=== PATIENT | female | born 1935 | race Hispanic/Latino ===

== ENCOUNTER → 2020-02-05 | Day surgery (SDC) | payer MEDICARE, OTHER ==
--- NOTE | 2020-01-31 09:55 | Diagnostic Imaging Report ---
EXAMINATION: CHEST 2 VIEWS INDICATION: Pre-operative COMPARISON: None FINDINGS: LINES/TUBES:None LUNGS:The lungs are well-inflated. No focal consolidation or pulmonary edema. PLEURA:No pleural effusion or pneumothorax. MEDIASTINUM:The cardiomediastinal silhouette appears normal in size and shape. BONES/SOFT TISSUES:No acute osseous injury. ABDOMEN:No free air under the diaphragm. Status post cholecystectomy. IMPRESSION: No focal pneumonia or pulmonary edema. Signed by: Balbir Sabillon MD on 01/31/2020 9:51 AM
[2020-01-31 10:03] LABS: BASOPHILS # (AUTO) 0.1 (0.0-0.1); BASOPHILS % 0.7 % (0.0-1.0); EOSINOPHILS # (AUTO) 0.2 (0.0-0.4); EOSINOPHILS % 2.5 % (0.0-6.0); HEMATOCRIT 44.6 % (34.2-44.1); HEMOGLOBIN 15.2 g/dL (12.0-16.0); LYMPHOCYTES # (AUTO) 2.7 (1.0-3.2); LYMPHOCYTES % 29.8 % (18.0-39.1); MEAN CORPUSCULAR HEMOGLOBIN 29.7 pg (28-32); MEAN CORPUSCULAR HGB CONC 34.1 g/dL (31-35); MEAN CORPUSCULAR VOLUME 87.3 fL (81-99); MONOCYTES # (AUTO) 0.8 (0.2-0.8); MONOCYTES % 8.6 % (4.4-11.3); NEUTROPHILS # (AUTO) 5.2 (2.1-6.9); NEUTROPHILS % 58.1 % (38.7-80.0); PLATELET COUNT 164 x10e3/uL (140-360); RED BLOOD COUNT 5.11 x10e6/uL (3.6-5.1)
--- NOTE | 2020-01-31 10:17 | Diagnostic Imaging Report ---
Exam: KUB - 2 views Indication: Preoperative Comparison: None Findings: Left internal nephroureteral stent in place. No radiographically apparent urinary calculi. Nonobstructive bowel gas pattern. No free air. Status post cholecystectomy. Surgical clips project over the right lower quadrant. No acute osseous injury. Degenerative changes of the visualized spine and both hip joints. Impression: Left internal nephroureteral stent in place. No radiographically apparent urinary calculi. Signed by: Balbir Sabillon MD on 01/31/2020 10:13 AM
[2020-01-31 10:22] LABS: ALBUMIN 3.7 g/dL (3.5-5.0); ALBUMIN/GLOBULIN RATIO 0.9 (0.8-2.0); ANION GAP 17.7 mmol/L (8-16); CALCIUM 9.8 mg/dL (8.4-10.2); CREATININE, SERUM 1.26 mg/dL (0.57-1.11); POTASSIUM 4.7 mmol/L (3.5-5.1)
[~2020-02-05] MED LIST: B&O 60MG R/S 60 MG SUPP PR ONE; CLARITIN10 MG PO; CYMBALTA30 MG PO; FIBER PO; GENTAMICIN 80MG/NS 100 ML 200 ML IV ONE; GLIMEPIRIDE2 MG PO; INSULIN REGULAR, HUMAN 100 UNIT/1 ML 3ML VIAL ONE; IOPAMIDOL 300MG/ML 50ML INFUS..BTL IV ONE; LEVOFLOXACIN 500MG/D5W 100ML 100 ML IV ONE; LOSARTAN POTASS25 MG PO; PROPOFOL IV EMULSION 10 MG/ML 20 ML VIAL ONE; SEVOFLURANE INHAL SOLN 250 ML PEN BTL ONE; VITAMIN B-121000 MCG PO; VITAMIN D3250 MCG PO; ZETIA10 MG PO
[2020-02-05 11:45] VITALS: BP 115/77
--- NOTE | 2020-02-12 03:51 | Operative Report ---
DATE OF PROCEDURE: 02/05/2020 SURGEON: Devyn Baig MD PREOPERATIVE DIAGNOSES: 1. Left-sided ureteral stent retained for longer than a year. 2. Left ureteral stricture. 3. 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 4. Urinary tract infection. 5. Chronic renal insufficiency. POSTOPERATIVE DIAGNOSES: 1. Left-sided ureteral stent retained for longer than a year. 2. Left ureteral stricture. 3. 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 4. Urinary tract infection. 5. Chronic renal insufficiency. 6. Grade 2 cystocele. 7. Grade 3 rectocele. 8. Atrophic (senile) vaginitis. OPERATIONS PERFORMED: 1. Cystourethroscopy with right ureteral catheterization and retrograde ureteropyelography (separate procedure performed for urinary tract infections and chronic renal insufficiency). 2. Cystourethroscopy with complicated removal of left indwelling ureteral stent (separate procedure performed for the diagnosis of stent). 3. Left ureteroscopy with dilation of ureteral stricture (separate procedure performed for the diagnosis of the stricture at the left proximal ureter). 4. Urological services with supervision and interpretation of ureteroscopy. 5. Cystourethroscopy with insertion of left indwelling ureteral stent (separate procedure performed for the hydronephrosis). 6. Interpretation of retrograde ureteropyelography. 7. Supervision of fluoroscopy, no radiologist present. 8. Pelvic examination under anesthesia. ANESTHESIA: General. COMPLICATIONS: None. CLINICAL SUMMARY: Shayna Santana is an 84-year-old woman. She has a stent that she has had for over year. She has failed to follow up and she knew she needed to have done so and she has canceled multiple appointments. Eventually, we were able to bring her to the operating room. She is aware of the risks of bleeding, infection, injury to adjacent structures. She understands the need for ongoing followup and removal of stents as they are all temporary. She understood these risks and elected to proceed. OPERATIVE PROCEDURE IN DETAIL: Informed consent was verified. Shayna Santana was properly identified, taken to the operating room, placed on the cystoscopy table in supine position. Anesthesia was uneventfully begun. The cystoscope sheath with obturator in place was atraumatically inserted into patient's urethra and bladder was drained. Panendoscopy of the bladder revealed no suspicious mucosal lesions, no tumors, no stones, no diverticula. There was mild inflammation noted. There is a stent emerging from the left ureteral orifice and was minimally encrusted. A ureteral catheter was used to cannulate the right ureter and retrograde ureteropyelogram was performed. A guidewire was then placed alongside the stent and guided to the level of the patient's kidney, the stent was then grasped completely, removed and discarded. A semi-rigid ureteroscope was then placed alongside the guidewire and guided into the patient's left ureter. It was guided up the ureter to the proximal ureter where there was a narrowing proximal to that there was hydroureteronephrosis. We utilized the ureteroscope to dilate across the stricture. The ureteroscope was then withdrawn. With cystoscope and fluoroscopic guidance, a left-sided indwelling ureteral stent was then placed. It was coiled in the patient's kidney as well as in the patient's bladder. The retaining suture was cut short. Interpretation of retrograde ureteropyelography contrast was instilled in retrograde fashion bilaterally. On the right hand side, there were no tumors, no stones, no diverticula. Calices were sharp and delicate. Unobstructed drainage was observed fluoroscopically. The left side exhibited hydronephrosis tapering down at the proximal ureter where there appeared to be persistent obstruction. the patient's kidneys as well as the patient's bladder at the end of the case. The patient's bladder was drained. Cystoscope was withdrawn. Pelvic examination under anesthesia revealed that we could not feel the previously noted 3 cm paravaginal mass. This mass the patient went to a frame stripper and crusher for and was never able to find it nor do anything about it. Now, it is no longer palpable on physical examination. She had a grade 2 cystocele, grade 3 rectocele. There was atrophic (senile) vaginitis. No abnormal palpable pelvic masses could be appreciated. There were no obvious mucosal lesions. The patient was then uneventfully reversed from anesthesia and taken to recovery room in stable condition. There were no complications to the procedure. She tolerated the procedure well. Explicit postop instructions were given. We will follow the patient up in the office in a month. We hope the patient may then follow up for her stent as recommended. Devyn Baig MD [place]/[facility] /[id number]
== END | disposition home or self-care (01) ==
LOC: OR 06:40
PROVIDERS: ATTEND Urology
DX: N13.1 Hydronephrosis with ureteral stricture, not elsewhere classified (principal); N39.0 Urinary tract infection, site not specified; Z46.6 Encounter for fitting and adjustment of urinary device; E11.22 Type 2 diabetes mellitus with diabetic chronic kidney disease; I12.9 Hypertensive chronic kidney disease with stage 1 through stage 4 chronic kidney disease, or unspecified chronic kidney disease; N18.9 Chronic kidney disease, unspecified; N95.2 Postmenopausal atrophic vaginitis; N39.3 Stress incontinence (female) (male); N81.6 Rectocele; N81.89 Other female genital prolapse; R35.1 Nocturia; R81 Glycosuria; K21.9 Gastro-esophageal reflux disease without esophagitis; E78.00 Pure hypercholesterolemia, unspecified; E03.9 Hypothyroidism, unspecified; F32.9 Major depressive disorder, single episode, unspecified; Z88.1 Allergy status to other antibiotic agents; Z88.0 Allergy status to penicillin; Z88.8 Allergy status to other drugs, medicaments and biological substances; Z01.810 Encounter for preprocedural cardiovascular examination; Z01.812 Encounter for preprocedural laboratory examination; Z01.818 Encounter for other preprocedural examination; Z11.59 Encounter for screening for other viral diseases; Z79.84 Long term (current) use of oral hypoglycemic drugs
CPT/HCPCS: 36415 ×2; 52332; 52344; 71046; 74018; 74420; 80053; 82948; 85025; 93005; C1758; C1769; C2617; J1580; J1956; J2704; Q9967; U0002; J1817